=== PATIENT | female | born 1975 | race Caucasian/White ===

== ENCOUNTER 2016-12-16 23:03 | Emergency (ER) | payer BC ==
[~2016-12-16 23:03] MED LIST: ALLEGRA ALLERGY60 M1 PO; CLARITIN10 M8 PO; FERROUS SULFAT325 MG PO; FLONASE ALLERG9.9 ML; HUMALOG100 UNIT/1 SC; HUMALOG100 UNITS/; HUMALOG100 UNITS/ SC; IBUPROFEN800 M1 PO; LANTUS100 UNITS/ SC; LEVEMIR100 UNITS/ SC; METFORMIN HCL1000 M3 PO; OMEPRAZOLE20 M3 PO; PERCOCET 5-3251 EACH PO; PRENATABS RX T1 EACH PO
[2016-12-16] MEDS ORDERED: TRESIBA FL100 UNIT/1 (23:33)
[2016-12-16] MEDS ORDERED: GLUCOPHAGE1000 M1 PO (23:33)
[2016-12-16] MEDS ORDERED: AUGMENTIN 875-1 EAC2 PO (23:34)
[2016-12-16] MEDS ORDERED: PREDNISONE10 M1 PO (23:35)
[2016-12-16] MEDS ORDERED: TRULICITY1.5 MG/0.5 (23:36)
== END 2016-12-17 ==
LOC: EDMED 23:03
DX: G51.0 Bell's palsy (principal); E11.9 Type 2 diabetes mellitus without complications